=== PATIENT | male | born 1965 | race Caucasian/White ===

== ENCOUNTER 2024-12-25 16:33 | Emergency (ER) | payer MEDICAID, SELFPAY ==
--- NOTE | 2024-12-25 16:35 | XRR_ITS ---
PROCEDURE INFORMATION: Exam: XR Left Wrist Exam date and time: 12/25/2024 4:48 PM Age: 59 years old Clinical indication: Injury or trauma; Fall; Blunt trauma (contusions or hematomas); Wrist; Left TECHNIQUE: Imaging protocol: Radiologic exam of the left wrist. Views: 3 or more views. COMPARISON: No relevant prior studies available. FINDINGS: Bones/joints: Obliquely oriented, nondisplaced, intra-articular fracture of the distal radius. Old fracture deformity and displacement of the ulnar styloid process. Partially imaged plate and screw fixation of the radial and ulnar diaphyses. No other acute fracture or dislocation identified. 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 Soft tissues: Mild anterior soft tissue swelling at the level of the distal radius. XR/XR wrist LT min 3V* [id number] IMPRESSION: Obliquely oriented, nondisplaced, intra-articular fracture of the distal radius.
[2024-12-25 16:39] VITALS: BP 131/82; PULSE 75; RESP 14; TEMP 36.6; O2SAT 97; BMI 28.1
--- OUTSIDE RECORDS SUMMARY | 2024-12-25 16:43 | XMS_ITS | Patient Health Record ---
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 Role Phone Mervat Galvan Primary Care Provider MERVAT GALVAN Unavailable Unavailable Allergies Allergen (clinical drug ingredient) Drug/Non Drug Allergy documented on EMR Reaction Allergy Type Onset Date Status amoxicillin / clavulanate Augmentin Unknown Drug Allergy Active Results Component Value Reference Range Notes Lipid Panel Reflex DLDL 8006 3, 18354 Reviewed date:09/19/2024 07:27:55 AM Interpretation: Performing Lab: Notes/Report: Diagnosis Description: Encounter for screening for cardiovascular disorders Trig 342 Classification Guidelines:Triglycerides Adults: >20yrs Desirable <150 Borderline High 150-199 High 200-499 Very high >=500 Children: Male 0-4 yr 22-99 5-9 yr 30-101 10-14 yr 32-125 15-19 yr 37-148 Children: Female 0-4 yr 34-112 5-9 yr 32-105 10-14 yr 37-131 15-19 yr 39-132 Chol 210 <=200 MG/DL HDL 32 30-72 MG/DL Reference Ranges:HDL Male: 5-9y 38-75 10-14y 37-74 15-19y 30-63 >=20y 40-59 Female: 5-9y 36-73 10-14y 37-70 15-19y 35-74 >=20y 40-59 CH/HDL 6.6 0.0-4.9 RATIO LDL 110 0-130 MG/DL LDL result is i naccurate , if Trig is >400 mg/dl. See DLDL result. Comprehensive Metabolic Pane l (CMP) 13284 Reviewed date:09/10/2024 10:58:37 AM Interpretation: Performing Lab: Notes/Report: Diagnosis Description: Encounter for screening for cardiovascular disorders Glucose Serum 90 71-110 MG/DL Testing perfor med at [address] Cortney Galarza, [place] [address]. CLIA ID#: [id number] BUN 24 7-21 MG/DL Creat 1.22 .57-1.17 MG/DL U-wmylpp-r-benzoquinone imine (NAPQI) is a metabolite of acetaminophen, NAPQI concentrations of apparoximately 10 mg/L correlation to toxic levels of acetaminophen demonstrates a greater than or equil to 10% change in results. NAPQI concentrations greater than this may lead to falsely depressed results for patient samples. Use of this assay is not recommended for patients undergoing treatment with phenindione, due to the potential for falsely depressed results. GFR 67.5 Calculation per formed from GFR calculator provided by the [employer]. Glomerular Filtration rate(GRF) is the best overall index of kidney function. Normal GFR varies according to age,sex, body size, and declines with age. The [employer] recommends using the CKD-EPI Creatinine Equation(2020) to estimate GFR. BUN/Creat Ratio 19.7 12.0-20.0 % Total Protein 7.1 5.8-8.0 G/DL Albumin 4.2 3.2-4.8 G/DL Globulin 2.9 2.3-3.5 G/DL Alb/Glob 1.4 0.8-2.2 Calcium 9.1 8.7-10.4 MG/DL Sodium 137 136-145 MMOL/L Potassium 4.6 3.5-5.1 MMOL/L Chloride 103 98-107 MMOL/L CO2 27.5 20.0-31.0 MMOL/L Anion Gap 11 5-15 Alk Phos 80 46-116 Bili Total .6 .3-1.2 MG/DL Use of this ass ay is not recommended for patients undergoing treatment with eltrombopag due to the potential for falsely elevated results. AST/SGOT 16 15-37 UNIT/L ALT/SGPT 18 12-78 UNIT/L Osmo Serum,Calculated 288 280-300 MOSM/KG CBC w\ Auto Diff 20303 Reviewed date:09/10/2024 10:58:27 AM Interpretation: Performing Lab: Notes/Report: Diagnosis Description: Encounter for screening for cardiovascular disorders WBC 5.2 4.5-11.0 X10'3 RBC 4.73 4.50-5.90 X10'6 Hgb 14.0 13.5-17.5 G/DL Hct 42.8 41.0-53.0 % MCV 90.5 80.0-100.0 FL MCH 29.6 27.0-31.0 PG MCHC 32.7 31.0-37.0 G/DL Platelet 287 150-400 X10'3 RDW-SD 42.0 35.0-49.0 FL RDW-CV 12.6 12.2-15.6 % MPV 9.5 9.2-12.0 FL Neutro Auto% 57.2 40.0-70.0 % Lymph Auto% 29.7 22.0-44.0 % Jack Auto% 10.0 3.0-7.0 % Eos Auto% 2.1 2.0-4.0 % Baso Auto% 0.8 0.0-1.0 % Imm Gran% .2 .0-.4 % Neutro Abs 2.96 .80-7.70 Absolute Neutrophil Count 2960 Lymph Abs 1.54 .10-4.10 Jack Abs .52 .20-1.00 Eos Abs .11 .00-.40 Baso Abs .04 .00-.20 Imm Gran Abs .01 .00-.10 NRBC# .00 .00-.20 NRBC% .00 .00-.20 /100 int act WBC's Reason For Referral No Information Medications Medication SIG (Take, Route, Fr equency, Duration) Notes Start Date End Date Status Gabapentin 300 MG 1 capsule Orally at hs for 30 days 10/12/2023 Not-Taking Meloxicam 15 MG Take 1 tablet by jessica th once daily for 30 Active Social History Tobacco Use: Social History Observation Description Date Details (start date - stop date) Never Smoker NA - NA PHQ-9 Question Answer Notes Little interest or pleasure in doing things Not at all Feeling down, depressed, or hopeless Not at all Trouble falling or staying asleep, or sleeping t oo much Not at all Feeling tired or having little energy Not at all Poor appetite or overeating Not at all Feeling bad about yourself, or that you are a failure, or have let yourself or your family down Not at all Trouble concentrating on thi ngs, such as reading the newspaper or watching television Not at all Moving or speaking so slowly that other people could have noticed. Or the opposite ? being so fidgety or restless that you have been moving around a lot more than usual Not at all Thoughts that you would be b inna off , or of hurting yourself in some way Not at all Total Score 0 Tobacco Control (Standard) Question Answer Notes Tobacco use: Nonsmoker Section Notes: 10/12/23 PHQ9 10/12/23 PHQ9 10/12/23 PHQ9 Problems Problem Type SNOMED Code ICD Code Onset Dates Problem Status W/U Status Risk Notes Problem Lumbar radiculopathy (715385658) Lumbar radiculopathy (M54.16) Active confirmed Problem Osteoarthritis (627807585) Arthritis of hand (M19.90) Active confirmed Problem Sciatica (27049258) Right sciatic nerve pain (M54.31) Active confirmed Vital Signs Heart Rate 86 /min 09/09/2024 Temperature 97.7 degrees Fahrenheit 09/09/2024 Respiratory Rate 20 /min 09/09/2024 Blood pressure diastolic 76 mm Hg 09/09/2024 Oximetry 99 % 09/09/2024 Height-cm 187.96 cm 09/09/2024 Weight-kg 100.7 kg 09/09/2024 Height 74 in 09/09/2024 Blood pressure systolic 120 mm Hg 09/09/2024 Weight 222 lbs 09/09/2024 BMI 28.5 kg/m2 09/09/2024 Encounters Encounter Location Date Provider Diagnosis [facility] [address] [address] 09/09/2024 Mervat Galvan Lumbar radiculopathy M54.16 ; Arthritis of hand M19.90 and Screening for cardiovascular condition Z13.6 [facility] [address] [address] 09/12/2024 Mervat Galvan Assessments Encounter Date Diagnosis (ICD Code) Assessment Notes Treatment Notes Treatment Clinical Notes Section Notes 09/09/2024 Lumbar radiculopathy (ICD-10 - M54.16) Recheck in 3 months. 09/09/2024 Arthritis of hand (ICD-10 - M19.90) 09/09/2024 Screening for cardiovascular condition (ICD-10 - Z13.6) 09/09/2024 Other Venipuncture performed.Right arm. One attempt. Pt tolerated well, bleeding controlled with light dressing.Sandrine Burns LPN Plan Of Treatment No Information Insurance Providers Payer Name Payer Address Payer Phone Subscriber Number Group Number Insured Name Patient Relationship to Insured Coverage Start Date Coverage End Date [facility] Medicaid Replacement [address] [place] [place] [phone] [id number] Omkar Gonzales Self - patient is the insured Medical (General) History Surgical History Surgery Date(Month/Year) left arm surgery
--- NOTE | 2024-12-25 17:03 | W.ED.EXTPRO ---
HPI - Extremity Problem General: Chief complaint: Extremity Injury, Upper Stated complaint: left wrist injury Time Seen by Provider: 12/25/24 16:50 Source: patient Mode of arrival: ambulatory Limitations: no limitations History of Present Illness: Patient is a very nice 59-year-old male who presents to ED today along with his significant other for evaluation following a fall and left wrist injury. Patient states he tripped/slipped and hyperextended his left hand. He has noted swelling and pain to left wrist since. Denies striking his head or LOC. He has no other complaints or injuries at this time. MD Complaint: joint swelling (L wrist) and joint pain (L wrist) Onset (ago): hour(s) Pain Consistency: constant Location: left and upper extremity (wrist) Radiation: none Relieving factors: immobilization Exacerbating factors: range of motion and palpation Associated symptoms: Reports no associated symptoms Related Data Previous Rx's ?Medication ?Instructions ?Recorded tramadol 50 mg tablet 50 mg PO Q6H PRN pain #14 tabs 12/25/24 Allergies Allergy/AdvReac Type Severity Reaction Status Date / Time amoxicillin (From Augmentin) Allergy ALGY-Hives Verified 12/25/24 16:45 clavulanic acid (From Allergy ALGY-Hives Verified 12/25/24 16:45 Augmentin) Review of Systems Musc: Reports: joint pain (L wrist) and joint swelling (L wrist); Denies: neck pain, back pain, extremity pain, extremity swelling, joint redness or joint warmth Neuro: Denies: numbness in extremities or sensory changes Physical Exam Const: COMMON NORMALS: no acute distress, average body habitus, no limitations, healthy appearing, alert and well nourished Extremity: GENERAL: Yes normal exam except as noted LEFT UPPER EXTREMITY: Yes shoulder joint (full painless ROM) Left shoulder joint: Yes neurovascular exam (normal), Yes elbow joint (full ROM; very discomfort-feels like this radiates from wrist; no edema) Left elbow: Yes neurovascular exam (normal) and Yes wrist (edema/slight deformity consistent with fracture) Left wrist: Yes ROM (limited due to pain) and Yes neurovascular exam (normal) Neuro: COMMON NORMALS: moves all extremities, no focal motor deficits and no sensory deficits noted SENSORIUM/ORIENTATION: Yes alert Course Vital Signs: Vital signs: Vital Signs Temperature 97.8 F 12/25/24 16:39 Pulse Rate 75 12/25/24 16:39 Respiratory Rate 14 12/25/24 16:39 Blood Pressure 131/82 12/25/24 16:39 Pulse Oximetry 97 12/25/24 16:39 MDM - Extremity (Nontraumatic) Medical Decision Making XR of the left wrist showing an intra-articular distal radial fracture. Patient will be splinted and will have him follow-up with orthopedics. Medical Records I reviewed the patient's medical records. XR interpretation done by ED provider, pending radiology final review Discharge Plan Discharge Patient Disposition: Home Clinical Impression: Closed fracture of left distal radius Qualifiers: Encounter type: initial encounter Fracture morphology: other intra-articular Qualified Code(s): S52.572A - Other intraarticular fracture of lower end of left radius, initial encounter for closed fracture Condition: Stable Prescriptions: New tramadol 50 mg tablet 50 mg PO Q6H PRN (Reason: pain) Qty: 14 0RF Discharge Orders: Discharge ED (Routine); Ordered 12/25/24 Ordered By: Patience Lucio Patient Instructions: Wrist Fracture in Adults (ED), Opioid Safety, Pain Management, Patient Portal & Tiffany Instructions Activity Restrictions/Additional Instructions: As we discussed, your x-ray today showing a fracture of your distal radius. We will place you in a splint and have you follow-up with orthopedics. Case management should reach out to you this week to help set you up with this follow-up appointment. You have been prescribed pain medications that you may use for severe discomfort. You may ice and elevate the extremity to help with swelling. You need to stay in your splint at all times until your follow-up appointment. Print Language: [place] Island[place] Coding Level of Care Code ED Concrete Technician for Jeison Leon
[2024-12-25] MEDS: TRAMadol 50 mg Tablet PO (17:42)
--- NOTE | 2024-12-27 08:35 | DCPLANNER ---
messaged ortho for er f/u
== END 2024-12-25 18:06 | disposition home or self-care (01) ==
PROVIDERS: Emergency Provider Physician Assistant
DX: S52.572A Other intraarticular fracture of lower end of left radius, initial encounter for closed fracture (principal); W19.XXXA Unspecified fall, initial encounter
CPT/HCPCS: 29125; 73110; 99283; A4565; J9999

== ENCOUNTER → 2024-12-31 14:24 | Outpatient (BNVA) | payer MEDICAID, SELFPAY | PROVIDERS: Visit Provider Physician Assistant | DX: S52.572A Other intraarticular fracture of lower end of left radius, initial encounter for closed fracture (principal); W01.0XXA Fall on same level from slipping, tripping and stumbling without subsequent striking against object, initial encounter | CPT/HCPCS: 73110 ==

== ENCOUNTER → 2025-01-08 13:25 | Outpatient (BNVA) | payer MEDICAID, SELFPAY | PROVIDERS: Visit Provider Physician Assistant | DX: S52.572A Other intraarticular fracture of lower end of left radius, initial encounter for closed fracture (principal); X58.XXXA Exposure to other specified factors, initial encounter | CPT/HCPCS: 73110 ==

== ENCOUNTER → 2025-01-15 15:16 | Outpatient (BNVA) | payer MEDICAID, SELFPAY | PROVIDERS: Visit Provider Physician Assistant | DX: S52.572A Other intraarticular fracture of lower end of left radius, initial encounter for closed fracture (principal); X58.XXXA Exposure to other specified factors, initial encounter | CPT/HCPCS: 73110 ==

== ENCOUNTER → 2025-02-19 13:07 | Outpatient (BNVA) | payer MEDICAID, SELFPAY | PROVIDERS: Visit Provider Physician Assistant | DX: S52.572D Other intraarticular fracture of lower end of left radius, subsequent encounter for closed fracture with routine healing (principal); X58.XXXD Exposure to other specified factors, subsequent encounter | CPT/HCPCS: 73110 ==

== ENCOUNTER → 2025-04-02 13:00 | Outpatient (BNVA) | payer MEDICAID, SELFPAY | PROVIDERS: Visit Provider Physician Assistant | DX: S52.572D Other intraarticular fracture of lower end of left radius, subsequent encounter for closed fracture with routine healing (principal); X58.XXXD Exposure to other specified factors, subsequent encounter | CPT/HCPCS: 73110 ==